=== PATIENT | male | born 1985 | race African-American/Black ===

== ENCOUNTER 2017-08-05 17:18 | Emergency (ER) | payer OTHER ==
[~2017-08-05] VITALS: Ht 188 cm; Wt 68.9 kg
[2017-08-05] MEDS ORDERED: NOVOLIN R100 UNIT/1 (17:36)
== END 2017-08-05 19:18 | disposition home or self-care (01) ==
LOC: ER 17:18
DX: S81.821A Laceration with foreign body, right lower leg, initial encounter (principal); W45.8XXA Other foreign body or object entering through skin, initial encounter; Y93.89 Activity, other specified; Y92.89 Other specified places as the place of occurrence of the external cause; Y99.8 Other external cause status

== ENCOUNTER 2017-09-12 14:56 | Emergency (ER) | payer OTHER ==
[~2017-09-12] VITALS: Ht 185.4 cm; Wt 68.0 kg
[~2017-09-12 14:56] MED LIST: NOVOLIN R100 UNIT/1
== END 2017-09-12 19:06 | disposition home or self-care (01) ==
LOC: ER 14:56
DX: A54.09 Other gonococcal infection of lower genitourinary tract (principal)